=== PATIENT | male | born 1970 | race African-American/Black ===

== ENCOUNTER 2020-10-18 11:01 | Emergency (ER) | payer OTHER ==
[~2020-10-18] VITALS: Ht 185.4 cm; Wt 113.0 kg
[~2020-10-18 11:01] MED LIST: WARF10TA21
[2020-10-18 11:57] LABS: BASOPHILS % 0.6 % (0.0-2.0); EOSINOPHILS % 3.7 % (0.0-5.0); HEMATOCRIT. 50.7 % (42.0-52.0); LYMPHOCYTES % 22.8 % (20.0-50.0); MEAN CORPUSCULAR HEMOGLOBIN 28.7 pg (28.0-32.0); MEAN CORPUSCULAR VOLUME 85.6 fL (80.0-94.0); MEAN PLATELET VOLUME 7.2 fl (7.4-10.4); MONOCYTES % 6.2 % (2.0-8.0); NEUTROPHILS % 66.7 % (40.0-76.0); PLATELET 128 x1000/uL (130-400); RED BLOOD CELL COUNT 5.93 mill/uL (4.7-6.1); RED CELL DISTRIBUTION WIDTH 15.5 % (11.6-14.6)
[2020-10-18 12:07] LABS: CHLORIDE 105 mEq/L (98-107)
[2020-10-18 12:49] LABS: PROTHROMBIN TIME 10.8 sec (9.6-11.0)
[2020-10-18] MEDS ORDERED: ENOXAPARIN 120MG/0.8ML SYR SUBCUT ONE (13:00)
[2020-10-18] MEDS ORDERED: RIVAROXABAN 15 MG TABLET PO SCH (15:00)
[2020-10-18 16:24] VITALS: BP 197/113
== END 2020-10-18 16:26 | disposition home or self-care (01) ==
LOC: ER 11:01
DX: I82.412 Acute embolism and thrombosis of left femoral vein (principal); I10 Essential (primary) hypertension; Z86.73 Personal history of transient ischemic attack (TIA), and cerebral infarction without residual deficits; Z86.718 Personal history of other venous thrombosis and embolism; Z79.01 Long term (current) use of anticoagulants
CPT/HCPCS: 36415; 80053; 85025; 85610; 93005; 93971; 96372; 99285; J1650; Z7610

== ENCOUNTER 2021-12-08 13:24 | Emergency (ER) | payer MEDICAID, OTHER ==
[~2021-12-08] VITALS: Ht 185.4 cm; Wt 137.0 kg
[2021-12-08] MEDS ORDERED: MORPHINE SULFATE 4 MG/ML CPJ (NOT FOR IM USE) IV STA (14:49)
[2021-12-08] MEDS ORDERED: ONDANSETRON HCL 4MG/2ML INJ IV STA (14:49)
[2021-12-08 15:32] LABS: PARTIAL THROMBOPLASTIN TIME 26.4 sec (23.4-31.0); PROTHROMBIN TIME 10.5 sec (9.6-11.0)
[2021-12-08 15:44] LABS: CHLORIDE 104 mEq/L (98-107)
[2021-12-08] MEDS ORDERED: ENOXAPARIN 150MG/ML SYR SUBCUT ONE (15:45)
[2021-12-08 17:22] LABS: CLARITY URINE CLEAR (CLEAR); COLOR URINE DARK YELLOW (YELLOW); KETONES URINE TRACE (NEGATIVE); LEUKOCYTE ESTERASE URINE TRACE (NEGATIVE); NITRITE URINE NEGATIVE (NEGATIVE); OCCULT BLOOD URINE TRACE (NEGATIVE); PROTEIN URINE 1+ (NEGATIVE); SPECIFIC GRAVITY URINE 1.028 (1.005-1.030)
[2021-12-08 18:58] VITALS: BP 174/115
== END 2021-12-08 19:10 | disposition admitted as inpatient to this hospital (09) ==
LOC: ER 14:22 → CANBEDREQ 12-09 02:17
DX: R79.9 Abnormal finding of blood chemistry, unspecified (principal); I82.622 Acute embolism and thrombosis of deep veins of left upper extremity; I10 Essential (primary) hypertension; Z86.73 Personal history of transient ischemic attack (TIA), and cerebral infarction without residual deficits; F17.290 Nicotine dependence, other tobacco product, uncomplicated; F12.10 Cannabis abuse, uncomplicated; Z20.822 Contact with and (suspected) exposure to COVID-19
CPT/HCPCS: 36415; 71045; 80053; 81003; 85610; 85730; 87426; 93005; 93971; 96374; 96375; 99285; J2270; J2405; J1650

== ENCOUNTER 2022-10-09 09:19 | Emergency (ER) | payer OTHER ==
[~2022-10-09] VITALS: Ht 182.9 cm; Wt 121.0 kg
[2022-10-09 10:10] LABS: BASOPHILS % 0.6 % (0.0-2.0); EOSINOPHILS % 3.6 % (0.0-5.0); HEMATOCRIT. 51.7 % (42.0-52.0); HEMOGLOBIN. 16.9 g/dL (14.0-18.0); LYMPHOCYTES % 18.4 % (20.0-50.0); MEAN CORPUSCULAR HEMOGLOBIN 28.1 pg (28.0-32.0); MEAN CORPUSCULAR VOLUME 86.2 fL (80.0-94.0); MONOCYTES % 7.1 % (2.0-8.0); NEUTROPHILS % 70.3 % (40.0-76.0); PLATELET 129 x1000/uL (130-400); RED CELL DISTRIBUTION WIDTH 14.7 % (11.6-14.6)
[2022-10-09 10:25] LABS: CHLORIDE 107 mEq/L (98-107)
[2022-10-09] MEDS ORDERED: HYDRALAZINE 20MG/ML VIAL IV ONE ×2 (10:45→14:30)
[2022-10-09] MEDS ORDERED: ASPIRIN 81MG TABLET PO ONE (11:30)
[2022-10-09] MEDS ORDERED: CLOPIDOGREL 75MG TABLET PO ONE (11:30)
[2022-10-09 14:58] VITALS: BP 167/110
== END 2022-10-09 15:14 | disposition short-term general hospital (02) ==
LOC: EDBEDREQTM 11:32 → EDBEDREQ 11:32 → ER 11:40 → CANBEDREQ 12:36 → ER 15:14
DX: R53.1 Weakness (principal); I16.1 Hypertensive emergency; I69.354 Hemiplegia and hemiparesis following cerebral infarction affecting left non-dominant side; F12.10 Cannabis abuse, uncomplicated; Z86.718 Personal history of other venous thrombosis and embolism; Z79.01 Long term (current) use of anticoagulants
CPT/HCPCS: 36415; 70450; 71045; 80053; 84484; 85025; 93005; 96374; 96376; 99285; J0360; Z7610